=== PATIENT | male | born 1950 | race Caucasian/White ===

== ENCOUNTER 2024-01-23 16:54 | Emergency (ER) | payer MEDICARE ==
[~2024-01-23] VITALS: Ht 172.7 cm; Wt 86.2 kg
[2024-01-23 17:00] VITALS: BP_SYST 136; PULSE 87; RESP 18; TEMP 97.9; O2SAT 94
[2024-01-23 17:56] LABS: BASOPHILS % (AUTO) 0.5 % (0.0-2.0); EOSINOPHILS # (AUTO) 0.1 K/uL (0.0-0.4); EOSINOPHILS % (AUTO) 0.6 % (0.0-4.0); HEMATOCRIT 39.6 % (36-54); HEMOGLOBIN 13.2 g/dL (14.0-18.0); LYMPHOCYTES # (AUTO) 1.3 K/uL (1.0-5.5); LYMPHOCYTES % (AUTO) 11.9 % (20.5-51.5); MEAN CORPUSCULAR HEMOGLOBIN 33 pg (27-31); MEAN CORPUSCULAR HGB CONC 33 % (32-36); MEAN CORPUSCULAR VOLUME 98 fL (79.0-98.0); MONOCYTES # (AUTO) 0.9 K/uL (0.0-1.0); MONOCYTES % (AUTO) 8.7 % (1.7-9.3); NEUTROPHILS # (AUTO) 8.3 K/uL (1.8-7.7); NEUTROPHILS % (AUTO) 78.3 % (40.0-70.0); PLATELET COUNT (AUTO) 254 K/uL (130-430); RED BLOOD CELL COUNT(AUTO) 4.05 MIL/uL (4.2-6.2); RED CELL DISTRIBUTION WIDTH 13.8 % (9.0-15.0); WHITE BLOOD COUNT (AUTO) 10.6 K/uL (4.8-10.8)
[2024-01-23 18:19] LABS: ALANINE AMINOTRANSFERASE 48 U/L (12-78); ALBUMIN 3.1 g/dL (3.4-4.8); ANION GAP 12 (5-15); ASPARTATE AMINOTRANSFERASE 23 U/L (10-37); CALCIUM 9.4 mg/dL (8.4-11.0); CARBON DIOXIDE 23 mmol/L (23-29); CHLORIDE 106 mmol/L (98-107); CREATININE 0.92 mg/dL (0.55-1.30); GLUCOSE 156 mg/dL (74-106); POTASSIUM 4.2 mmol/L (3.5-5.1); SODIUM SERUM 141 mmol/L (136-145); TOTAL BILIRUBIN 0.5 mg/dL (0.0-1.0); TOTAL PROTEIN, SERUM 7.5 g/dL (6.4-8.3); UREA NITROGEN, BLOOD 19 mg/dL (8-21)
[2024-01-23 18:30] LABS: BILIRUBIN,DIRECT 0.1 mg/dL (0.0-0.3)
[2024-01-23 18:31] LABS: LIPASE 20 U/L (16-77)
[2024-01-23] MEDS: NACL 0.9% 1,000 ML IV ONE (20:12)
[2024-01-23 20:57] LABS: CLARITY/URINE CLEAR (CLEAR); COLOR,URINE YELLOW (YELLOW); GLUCOSE,URINE 3+ (NEGATIVE); KETONES,URINE 3+ (NEGATIVE); PH,URINE 5.5 (5.0-8.0); PROTEIN URINE TRACE (NEGATIVE)
[2024-01-23 20:58] LABS: BILIRUBIN,URINE NEGATIVE (NEGATIVE); BLOOD, URINE NEGATIVE (NEGATIVE); LEUKOCYTE ESTERASE ,URINE NEGATIVE (NEGATIVE); NITRITE, URINE NEGATIVE (NEGATIVE)
[2024-01-23 21:04] LABS: BACTERIA,URINE RARE /HPF (None Seen); MUCUS,URINE None Seen /LPF (None Seen); RBC,URINE NONE SEEN /HPF (0-3); WBC,URINE 0-3 /HPF (0-3)
[2024-01-24] MEDS ORDERED: METF-518 PO (01:09)
[2024-01-24] MEDS ORDERED: ATOR-1 PO (01:09)
[2024-01-24] MEDS ORDERED: CLOP75TA32 PO (01:09)
[2024-01-24] MEDS ORDERED: GLIP10TA11 PO (01:09)
[2024-01-24] MEDS ORDERED: ASPI-1393 PO (01:09)
[2024-01-24] MEDS ORDERED: DOCU-144 PO (01:09)
[2024-01-24] MEDS ORDERED: DOXA-7 PO (01:09)
[2024-01-24] MEDS ORDERED: NEU300 PO (01:09)
[2024-01-24] MEDS ORDERED: METO25TA6 PO (01:09)
[2024-01-24] MEDS ORDERED: EMPA10TA PO (01:09)
[2024-01-24 02:39] VITALS: BP_SYST 138; PULSE 69; RESP 16; TEMP 98.6; O2SAT 98
== END 2024-01-24 02:39 | disposition short-term general hospital (02) ==
LOC: SED 16:54
DX: K52.9 Noninfective gastroenteritis and colitis, unspecified (principal); R10.30 Lower abdominal pain, unspecified; R11.0 Nausea; E11.9 Type 2 diabetes mellitus without complications; I10 Essential (primary) hypertension; E78.5 Hyperlipidemia, unspecified; Z88.8 Allergy status to other drugs, medicaments and biological substances; Z20.822 Contact with and (suspected) exposure to COVID-19
CPT/HCPCS: 99285; 74176; 96365; 96361; 87426; 80076; 80048; 81000; 81001; 83690; 85025; 84484; 36415; 93005; 83605; 81015; J1956; J7030